=== PATIENT | female | born 1980 | race African-American/Black ===

== ENCOUNTER 2019-11-16 12:51 | Outpatient (CLI) | payer OTHER, SELFPAY ==
[2019-11-16 13:13] LABS: Basophils Percent Auto 0.4 % (0.2-1.2); Eosinophils Absolute Auto 0.1 K/mm3 (0-0.3); Hematocrit 35.9 % (37.0-47.0); Hemoglobin 11.6 g/dL (12.0-15.0); Immature Granulocyte Absolute 0.04 K/mm3 (0.00-0.031); Immature Granulocyte Percent A 0.4 % (0-0.5); Lymphocytes Absolute Auto 2.28 K/mm3 (0.9-3.2); Lymphocytes Percent Auto 21.6 % (18.3-44.2); Mean Corpuscular HGB Conc 32.3 g/dl (32-36); Mean Corpuscular Hemoglobin 29.2 pg (26-34); Mean Corpuscular Volume 90.4 fl (80-100); Mean Platelet Volume 9.6 fl (7.4-10.4); Monocytes Absolute Auto 0.5 K/mm3 (0.1-0.6); Monocytes Percent Auto 4.8 % (2.6-8.5); Neutrophils Absolute Auto 7.6 K/mm3 (1.3-6.7); Neutrophils Percent Auto 71.8 % (45.5-73.1); Platelet Count Result 276 k/mm3 (150-375); Red Blood Count 3.97 M/mm3 (4.2-5.4); Red Cell Distribution Width 12.4 % (11.5-14.5); White Blood Count 10.6 K/mm3 (4.5-10.0)
[2019-11-16 13:18] LABS: Blood Urea Nitrogen 11 mg/dL (8-26); Carbon Dioxide 25 mmol/L (22-30); Chloride 106 mmol/L (98-109); Estimated Glomerular Filt Rate > 60; Glucose 99 mg/dL (70-105); Potassium 3.5 mmol/L (3.5-4.9); Sodium 140 mmol/L (138-146)
[2019-11-16 16:50] LABS: Alanine Aminotransferase 9 U/L (4-35); Albumin Level 3.8 g/dL (3.5-5.1); Alkaline Phosphatase 73 U/L (38-126); Aspartate Amino Transferase 17 U/L (14-36); Bilirubin,Total 0.4 mg/dL (0.2-1.3); Blood Urea Nitrogen 13 mg/dL (7-17); Calcium 9.5 mg/dL (8.4-10.2); Carbon Dioxide 23 mmol/L (22-30); Chloride 102 mmol/L (98-107); Estimated Glomerular Filt Rate > 60; Glucose 97 mg/dL (65-105); Potassium 3.7 mmol/L (3.4-5.0); Sodium 135 mmol/L (137-145)
[2019-11-16 17:11] LABS: Iron 85 ug/dL (37-170)
[2019-11-16 17:24] LABS: Percent Iron Saturation 22 % (20-50)
[2019-11-16 17:57] LABS: Folic Acid 6.3 ng/mL (2.76->20)
[2019-11-19 05:59] LABS: CA 27.29 165 U/mL (<38)
== END 2019-11-16 12:52 | disposition home or self-care (01) ==
PROVIDERS: Visit Provider Internal Medicine Hematology & Oncology
DX: C50.411 Malignant neoplasm of upper-outer quadrant of right female breast (principal); Z17.1 Estrogen receptor negative status [ER-]; D64.9 Anemia, unspecified
CPT/HCPCS: 36415; 80048; 80053; 82607; 82728; 82746; 83540; 83550; 84443; 85025; 86300

== ENCOUNTER 2019-12-08 07:42 | Outpatient (CLI) | payer OTHER, SELFPAY ==
--- NOTE | ~2019-12-08 | CT_ITS ---
EXAMINATION: CT chest abdomen pelvis w con DATE: 12/08/2019 08:31 INDICATION: Right breast cancer follow-up, left flank and left upper quadrant pain TECHNIQUE: Transaxial computed tomographic images of the chest, abdomen, and pelvis were obtained aft er the administration of 100 cc of Omnipaque 350 intravenous contrast. The dose-length product (DLP) was 818.08 mGy-cm. Automated exposure control and iterative reconstruction technique were employed. COMPARISON: 05/01/2019 FINDINGS: CHEST CT: There are tiny stable nodules of the right upper lobe which measure 1 to 2 mm. No new or suspicious p ulmonary nodule is identified. Changes in the right breast are consistent with treatment for breast c ancer. The lungs are free of acute opacities. There is no pleural effusion or pneumothorax. The heart size is normal. There are no pathologically enlarged thoracic lymph nodes. ABDOMEN/PELVIS CT: The liver is diffusely low in attenuation when compared with the spleen, consistent with hepatic stea tosis. A small sliding hiatal hernia is noted. The spleen, pancreas, gallbladder, and adrenal glands are normal. The left kidney is unremarkable. There is mild right hydronephrosis. No pathologically en larged abdominal or pelvic lymph nodes are identified. There is no free intraperitoneal gas or eviden ce of bowel obstruction. A small volume of free fluid in the pelvis is likely physiologic. The uterus is enlarged and contains numerous fibroids. There is an enhancing corpus luteum of the right adnexa. No pathologically enlarged abdominal or pelvic lymph nodes are identified. There is no free intraper itoneal gas or evidence of bowel obstruction. The appendix is normal. IMPRESSION: 1. Stable changes of the right breast, consistent with treatment for breast cancer. 2. Unchanged 1 to 2 mm nodules of the right upper lobe, likely old granulomatous disease. 3. Mild right hydronephrosis of unclear etiology. Reviewed, dictated and finalized at location A. E [employer] IMPRESSION: 1. Stable changes of the right breast, consistent with treatment for breast can cer. 2. Unchanged 1 to 2 mm nodules of the right upper lobe, likely old granulomatou s disease. 3. Mild right hydronephrosis of unclear etiology.
== END 2019-12-08 07:43 | disposition home or self-care (01) ==
LOC: ANHIMG 07:45
PROVIDERS: Visit Provider Internal Medicine Hematology & Oncology
DX: C50.411 Malignant neoplasm of upper-outer quadrant of right female breast (principal); Z17.1 Estrogen receptor negative status [ER-]; R91.8 Other nonspecific abnormal finding of lung field; N13.30 Unspecified hydronephrosis
CPT/HCPCS: 71260; 74177; Q9967

== ENCOUNTER 2020-03-17 07:26 | Outpatient (CLI) | payer OTHER, SELFPAY ==
--- NOTE | ~2020-03-17 | NM_ITS ---
EXAMINATION: NM bone scan whole body DATE: 03/17/2020 12:42 INDICATION: Malignant neoplasm of upper outer quadrant of right breast in female. TECHNIQUE: 25 mCi Tc-99m HDP was administered intravenously. Delayed whole-body scintigrams were obt ained. COMPARISON: CT chest, abdomen, and pelvis 12/08/2019 FINDINGS: There is right-sided hydronephrosis. There is asymmetric increased activity at right sacroi liac joint correlating with osteoarthritis by CT. There is no evidence of osseous metastatic disease. IMPRESSION: 1. No evidence of osseous metastatic disease. 2. Right-sided hydronephrosis. Reviewed, dictated and finalized at location A.
== END 2020-03-17 07:27 | disposition home or self-care (01) ==
LOC: ANHIMG 07:34
PROVIDERS: Visit Provider Internal Medicine Hematology & Oncology
DX: M89.8X5 Other specified disorders of bone, thigh (principal); N20.0 Calculus of kidney
CPT/HCPCS: 78306; A9561

== ENCOUNTER 2020-04-13 09:05 | Outpatient (CLI) | payer OTHER, SELFPAY ==
[2020-04-13 09:21] LABS: Basophils Absolute Auto 0.1 K/mm3 (0.0-0.1); Basophils Percent Auto 0.6 % (0.2-1.2); Eosinophils Absolute Auto 0.3 K/mm3 (0-0.3); Eosinophils Percent Auto 2.8 % (0-4.4); Hematocrit 28.8 % (37.0-47.0); Immature Granulocyte Absolute 0.06 K/mm3 (0.00-0.031); Immature Granulocyte Percent A 0.6 % (0-0.5); Lymphocytes Absolute Auto 1.58 K/mm3 (0.9-3.2); Lymphocytes Percent Auto 17.1 % (18.3-44.2); Mean Corpuscular HGB Conc 31.3 g/dl (32-36); Mean Corpuscular Hemoglobin 28.8 pg (26-34); Mean Platelet Volume 8.5 fl (7.4-10.4); Monocytes Absolute Auto 0.5 K/mm3 (0.1-0.6); Monocytes Percent Auto 5.2 % (2.6-8.5); Neutrophils Absolute Auto 6.8 K/mm3 (1.3-6.7); Neutrophils Percent Auto 73.7 % (45.5-73.1); Platelet Count Result 480 k/mm3 (150-375); Red Blood Count 3.13 M/mm3 (4.2-5.4); Red Cell Distribution Width 14.1 % (11.5-14.5); White Blood Count 9.2 K/mm3 (4.5-10.0)
[2020-04-13 09:24] LABS: Blood Urea Nitrogen 18 mg/dL (8-26); Carbon Dioxide 24 mmol/L (22-30); Chloride 104 mmol/L (98-109); Estimated Glomerular Filt Rate 47; Glucose 94 mg/dL (70-105); Sodium 138 mmol/L (138-146)
[2020-04-13 10:29] LABS: Alanine Aminotransferase 8 U/L (4-35); Albumin Level 4.1 g/dL (3.5-5.1); Alkaline Phosphatase 81 U/L (38-126); Aspartate Amino Transferase 18 U/L (14-36); Bilirubin,Total < 0.1 mg/dL (0.2-1.3); Blood Urea Nitrogen 19 mg/dL (7-17); Calcium 9.8 mg/dL (8.4-10.2); Carbon Dioxide 24 mmol/L (22-30); Chloride 104 mmol/L (98-107); Estimated Glomerular Filt Rate 47; Glucose 95 mg/dL (65-105); Potassium 4.4 mmol/L (3.4-5.0); Sodium 137 mmol/L (137-145)
[2020-04-16 04:15] LABS: CA 27.29 327 U/mL (<38)
== END 2020-04-13 09:06 | disposition home or self-care (01) ==
PROVIDERS: Visit Provider Internal Medicine Hematology & Oncology
DX: C50.411 Malignant neoplasm of upper-outer quadrant of right female breast (principal); Z17.1 Estrogen receptor negative status [ER-]
CPT/HCPCS: 36415; 80048; 80053; 85025; 86300

== ENCOUNTER 2020-04-19 08:41 | Outpatient (CLI) | payer OTHER, SELFPAY ==
--- NOTE | ~2020-04-19 | PE_ITS ---
EXAMINATION: PET skull to mid thigh DATE: 04/19/2020 10:29 INDICATION: Metastatic breast cancer. TECHNIQUE: Blood glucose level was 106 mg/dL. 11.22 mCi of 18-fluorodeoxyglucose (18-FDG) was adminis tered i.v. Low dose computed tomography (CT) images were acquired from the base of the brain to the p roximal thighs for attenuation correction and anatomic localization. Automated exposure control was e mployed. Dose-length product (DLP) was 798 mGy-cm. Positron emission tomography (PET) images were acq uired in the same distribution. COMPARISON: CT chest, abdomen, and pelvis 12/08/2019, 05/01/2019 FINDINGS: Head/neck: There is increased activity in the major salivary glands, oral cavity, oropharynx, and jose miguel ttis without CT correlate, likely physiologic. There are no pathologically enlarged lymph nodes. Chest: The lungs are unremarkable. No pleural effusion. The heart size is normal. No pericardial effu crystal. There is chronic skin thickening in right breast, likely treatment change. There are no patholo gically enlarged lymph nodes. Abdomen/pelvis/proximal thighs: The liver, gallbladder, spleen, pancreas, and adrenal glands are norm al. There is mild bilateral hydronephrosis. There are bilateral internal ureteral stent in expected p ositions. There are changes of hysterectomy. There are no dilated loops of bowel. There is diverticul osis of the colon without evidence of diverticulitis. There is trace pelvic ascites. There are no pat hologically enlarged lymph nodes. There is increased activity in the subtrochanteric region of proxim al right femur without CT correlate. There is a new lytic lesion in right ischial tuberosity at the a ttachment of the hamstring tendons without increased activity. There is a worsened lytic lesion in po sterior right ilium near the sacroiliac joint with increased activity. IMPRESSION: 1. Bone lesions suspicious for metastatic disease. The right ilium would be amenable to CT-guided bio psy if clinically indicated. 2. Mild bilateral hydronephrosis with bilateral internal ureteral stents in expected positions. Reviewed, dictated and finalized at location A. IMPRESSION: 1. Bone lesions suspicious for metastatic disease. The right ilium would be fermín nable to CT-guided biopsy if clinically indicated. 2. Mild bilateral hydronephrosis with bilateral internal ureteral stents in exp ected positions.
[2020-04-19 09:08] LABS: Glucose Point of Care 106 (65-105)
== END 2020-04-19 08:42 | disposition home or self-care (01) ==
PROVIDERS: PCP Internal Medicine Endocrinology, Diabetes & Metabolism; Visit Provider Internal Medicine Hematology & Oncology
DX: C50.919 Malignant neoplasm of unspecified site of unspecified female breast (principal)
CPT/HCPCS: 78815; A9552

== ENCOUNTER 2020-05-10 13:01 | Outpatient (CLI) | payer OTHER, SELFPAY ==
[2020-05-10 13:19] LABS: Basophils Percent Auto 0.4 % (0.2-1.2); Eosinophils Absolute Auto 0.2 K/mm3 (0-0.3); Eosinophils Percent Auto 1.9 % (0-4.4); Hematocrit 28.5 % (37.0-47.0); Hemoglobin 8.8 g/dL (12.0-15.0); Immature Granulocyte Absolute 0.07 K/mm3 (0.00-0.031); Immature Granulocyte Percent A 0.7 % (0-0.5); Lymphocytes Absolute Auto 1.56 K/mm3 (0.9-3.2); Lymphocytes Percent Auto 15.6 % (18.3-44.2); Mean Corpuscular HGB Conc 30.9 g/dl (32-36); Mean Corpuscular Hemoglobin 27.4 pg (26-34); Mean Corpuscular Volume 88.8 fl (80-100); Monocytes Absolute Auto 0.4 K/mm3 (0.1-0.6); Monocytes Percent Auto 4.1 % (2.6-8.5); Neutrophils Absolute Auto 7.7 K/mm3 (1.3-6.7); Neutrophils Percent Auto 77.3 % (45.5-73.1); Platelet Count Result 401 k/mm3 (150-375); Red Blood Count 3.21 M/mm3 (4.2-5.4); Red Cell Distribution Width 13.9 % (11.5-14.5)
[2020-05-10 13:23] LABS: Blood Urea Nitrogen 16 mg/dL (8-26); Carbon Dioxide 24 mmol/L (22-30); Chloride 103 mmol/L (98-109); Estimated Glomerular Filt Rate 50; Glucose 80 mg/dL (70-105); Potassium 4.1 mmol/L (3.5-4.9); Sodium 139 mmol/L (138-146)
[2020-05-10 16:49] LABS: Alanine Aminotransferase 12 U/L (4-35); Alkaline Phosphatase 131 U/L (38-126); Anion Gap 14.3 mmol/L (7-16); Aspartate Amino Transferase 22 U/L (14-36); Bilirubin,Total 0.3 mg/dL (0.2-1.3); Blood Urea Nitrogen 17 mg/dL (7-17); Calcium 10.5 mg/dL (8.4-10.2); Carbon Dioxide 24 mmol/L (22-30); Chloride 103 mmol/L (98-107); Estimated Glomerular Filt Rate 55; Glucose 82 mg/dL (65-105); Potassium 4.3 mmol/L (3.4-5.0); Sodium 137 mmol/L (137-145)
[2020-05-10 17:10] LABS: Iron 58 ug/dL (37-170)
[2020-05-10 17:21] LABS: Percent Iron Saturation 23 % (20-50)
[2020-05-10 18:35] LABS: Folic Acid > 20.0 ng/mL (2.76->20)
== END 2020-05-10 13:02 | disposition home or self-care (01) ==
PROVIDERS: PCP Internal Medicine Endocrinology, Diabetes & Metabolism; Visit Provider Internal Medicine Hematology & Oncology
DX: C50.411 Malignant neoplasm of upper-outer quadrant of right female breast (principal); Z17.1 Estrogen receptor negative status [ER-]
CPT/HCPCS: 36415; 80048; 80053; 82607; 82728; 82746; 83540; 83550; 85025